=== PATIENT | female | born 1990 | race Caucasian/White ===

== ENCOUNTER → 2021-01-04 07:43 | Outpatient (CLI) | payer OTHER, SELFPAY ==
--- NOTE | ~2021-01-04 | US_ITS ---
EXAMINATION: US OB transvaginal DATE: 01/04/2021 08:16 INDICATION: care for a patient with recurrent loss. TECHNIQUE: Real-time transabdominal and transvaginal pelvic ultrasound was performed. COMPARISON: Ultrasound 02/18/2018 FINDINGS: TRANSABDOMINAL ULTRASOUND: The uterus measures 10.1 x 4.2 x 6.0 cm. TRANSVAGINAL ULTRASOUND: There is an intrauterine gestational sac with mean diameter of 1.2 cm. A yol k sac is identified. The crown rump length measures 3 mm, which correlates with an estimated g estational age of 5 weeks and 6 day(s) (+/-) 4 day(s). heart motion is not identified by M-mode Doppler, which is normal at this size. There is a small subchorionic hematoma. The right ovary measu res 3.3 x 2.2 x 2.3 cm. The left ovary measures 7.2 x 4.4 x 5.5 cm. There is a 5.5 cm cyst in left ov ermelinda. There is no free fluid in the pelvis. IMPRESSION: 1. Single intrauterine with estimated date of delivery of 08/31/2021. 2. Small subchorionic hematoma. 3. 5.5 cm cyst in left ovary, likely benign. Pelvis ultrasound is recommended in one year. Reviewed, dictated and finalized at location A. [facility] IMPRESSION: 1. Single intrauterine with estimated date of delivery of 08/31/2021 . 2. Small subchorionic hematoma. 3. 5.5 cm cyst in left ovary, likely benign. Pelvis ultrasound is recommended i n one year.
== END ==
PROVIDERS: Visit Provider Obstetrics & Gynecology Gynecology
DX: O26.21 Pregnancy care for patient with recurrent pregnancy loss, first trimester (principal); Z3A.00 Weeks of gestation of pregnancy not specified
CPT/HCPCS: 76817

== ENCOUNTER → 2021-01-13 12:48 | Outpatient (CLI) | payer OTHER, SELFPAY ==
--- NOTE | ~2021-01-13 | US_ITS ---
EXAMINATION: US OB transvaginal EXAM DATE: 01/13/2021 13:21 INDICATION: Check viability. Follow-up subchorionic hematoma. 1st trimester. TECHNIQUE: Pelvic obstetrical transvaginal sonogram was performed by a technologist. There are mult iple grayscale and Doppler images available for interpretation. Comparison is made to prior examinati on from 01/04/2021. FINDINGS: Uterus measures 11.0 x 5.7 x 7.5 cm. There is intrauterine gestation sac. pole with heart rate confirmed at 137 beats per minute. The 8 mm crown-rump length corresponds to estimated g estational age by ultrasound of 6 weeks 5 days, estimated date of confinement 09/03. Yolk sac is junito ntified. There is small subchorionic hematoma again noted, measuring 7 mm in thickness by 1.4 cm in diameter, similar in size to previous exam. Simple cystic lesion in the left ovary measuring up to 6 cm with the overall ovary size 6.8 x 4.7 x 6 .9 cm, not appreciably changed compared to prior study. The right ovary is morphologically normal. Co nsider one-year follow-up pelvic sonogram. IMPRESSION: 1. Live intrauterine gestation with small subchorionic hemorrhage. 2. Left ovarian cystic lesion most likely benign. Recommend one-year follow-up pelvic sonogram. Reviewed, dictated and finalized at location A. [facility] [employer]
== END ==
PROVIDERS: Visit Provider Obstetrics & Gynecology Gynecology
DX: O36.8910 Maternal care for other specified fetal problems, first trimester, not applicable or unspecified (principal); O36.80X0 Pregnancy with inconclusive fetal viability, not applicable or unspecified; Z3A.00 Weeks of gestation of pregnancy not specified
CPT/HCPCS: 76817

== ENCOUNTER → 2021-02-10 10:20 | Outpatient (CLI) | payer OTHER, SELFPAY ==
--- NOTE | ~2021-02-10 | US_ITS ---
EXAMINATION: US OB limited DATE: 02/10/2021 10:58 INDICATION: Subchorionic hemorrhage TECHNIQUE: Real-time transabdominal obstetric ultrasound. FINDINGS: Ultrasound dated 01/13/2021 The uterus measures 1.4 x 6.6 x 8.7 cm. heart rate is 162 BPM. Amniotic fluid is subjectively n ormal. Small unchanged subchorionic hemorrhage on the right measuring 1.5 x 1.4 x 0.7 cm. There is a 6.2 cm corpus luteal cyst of the left ovary. Right ovary is unremarkable. IMPRESSION: 1. Single living intrauterine with heart rate of 162 BPM. 2: Small unchanged subchorionic hemorrhage measuring 1.5 x 1.4 x 0.7 cm 3: Left ovarian corpus luteal cyst measuring 6.2 cm. Reviewed, dictated and finalized at location B.
== END ==
PROVIDERS: Visit Provider Obstetrics & Gynecology Gynecology
DX: O36.8910 Maternal care for other specified fetal problems, first trimester, not applicable or unspecified (principal); Z3A.00 Weeks of gestation of pregnancy not specified; N83.11 Corpus luteum cyst of right ovary
CPT/HCPCS: 76815

== ENCOUNTER → 2021-03-03 10:21 | Outpatient (CLI) | payer OTHER, SELFPAY ==
--- NOTE | ~2021-03-03 | US_ITS ---
EXAMINATION: US OB limited DATE: 03/03/2021 10:44 INDICATION: Subchorionic hematoma during early second trimester of . TECHNIQUE: Real-time ultrasound of the pelvis was performed. The interpreting radiologist was not pre sent for the study. COMPARISON: None. FINDINGS: There is a single living fetus in variable presentation. The placenta is anterior and potentially lo w-lying however the internal cervical os is unable to be definitively distinguished from the endometr ial canal at the lower uterine segment which limits assessment. No evident subchorionic hematoma. Fet al heart rate is 154 beats per minute (bpm). The amniotic fluid volume is subjectively normal. IMPRESSION: 1. Single living fetus in variable presentation with heart rate of 154 bpm. 2. Anterior placenta potentially low-lying however evaluation is limited by the early stage of pregna ncy. Recommend attention on follow-up imaging. 3. No evident subchorionic hematoma. Reviewed, dictated and finalized at location A. IMPRESSION: 1. Single living fetus in variable presentation with heart rate of 154 b pm. 2. Anterior placenta potentially low-lying however evaluation is limited by the early stage of . Recommend attention on follow-up imaging. 3. No evident subchorionic hematoma.
== END ==
PROVIDERS: Visit Provider Obstetrics & Gynecology Gynecology
DX: O36.8910 Maternal care for other specified fetal problems, first trimester, not applicable or unspecified (principal); Z3A.00 Weeks of gestation of pregnancy not specified
CPT/HCPCS: 76815

== ENCOUNTER → 2021-03-17 09:11 | Outpatient (CLI) | payer OTHER, SELFPAY ==
--- NOTE | ~2021-03-17 | US_ITS ---
EXAMINATION: US OB limited EXAM DATE: 03/17/2021 09:36 INDICATION: Low lung placenta. 2nd trimester. TECHNIQUE: Pelvic obstetrical transabdominal sonogram was performed by a technologist. There are mu ltiple grayscale and Doppler images available for interpretation. Comparison is made to prior examina tion from 03/03/2021. FINDINGS: There is a single fetus identified in transverse presentation with a heart rate of 164 beat s per minute. The placenta is located in the low anterior position. Placental margin to internal cerv ical os distance is 6 mm . There is no sonographic evidence of retroplacental hemorrhage identified. There is subjectively expected amount of amniotic fluid. Incidental note made of left adnexal simple cystic region measuring 5.7 x 3.9 x 5.4 cm, stable lary red to study from 02/10/2021. IMPRESSION: 1. Single fetus in transverse presentation with heart rate 164 beats per minute. 2. Low anterior placenta, marginal 6 mm from internal cervical os. 3. Persistent nonspecific left adnexal simple cystic lesion. Reviewed, dictated and finalized at location B. IMPRESSION: 1. Single fetus in transverse presentation with heart rate 164 beats per minut e. 2. Low anterior placenta, marginal 6 mm from internal cervical os. 3. Persistent nonspecific left adnexal simple cystic lesion.
== END ==
PROVIDERS: Visit Provider Obstetrics & Gynecology Gynecology
DX: O44.10 Complete placenta previa with hemorrhage, unspecified trimester (principal); Z3A.00 Weeks of gestation of pregnancy not specified
CPT/HCPCS: 76815

== ENCOUNTER → 2021-04-14 09:59 | Outpatient (CLI) | payer OTHER, SELFPAY ==
--- NOTE | ~2021-04-14 | US_ITS ---
EXAMINATION: US OB >= 14 weeks Fetus EXAM DATE: 04/14/2021 11:11 INDICATION: Encounter for supervision of normal , 2nd trimester.. TECHNIQUE: Pelvic obstetrical transabdominal sonogram was performed by a technologist. There are mu ltiple grayscale and Doppler images available for interpretation. Comparison is made to prior examina tion from 03/17/2021. FINDINGS: There is a single fetus identified in transverse vertex presentation with a heart rate of 1 54 beats per minute. The placenta is located in the anterior position. There is no sonographic evide nce of retroplacental hemorrhage identified. There is subjectively expected amount of amniotic fluid. Placental margin to internal cervical os distance is 3.3 cm. BIOMETRIC DATA: Biparietal diameter (BPD): 4.8 cm ----------------> 20 weeks 3 days. Head circumference (HC): 17.5 cm ----------------> 20 weeks 0 days. Abdominal circumference (AC): 14.8 cm ----------> 20 weeks 0 days. Femur length (FL): 3.1 cm --------------------------> 19 weeks 4 days. These measurements are concordant. HC/AC ratio is 1.19 (The 5th -- 95th percentile range is 1.08-1.25. Estimated weight is 317 g +/- 48 g. This is the 54th percentile when the currently reported cl inical gestation age 19 weeks 5 days, clinical estimated date of delivery (EBONIE-OPE) 09/03/2021 is use d. estimated gestational age based on measurements from this exam is 20 weeks 0 days, with an e stimated date of delivery (EBONIE-AUA) 09/01. ANATOMIC SURVEY: The following anatomy is identified and is sonographically normal in appearance: Cerebral ventricles Cerebellum Cisterna magna Nuchal fold CTL-spine Four-chamber heart Diaphragm Stomach Kidneys Bladder Three-vessel cord Cord insertion IMPRESSION: 1. Single fetus in transverse vertex presentation with heart rate 154 beats per minute. 2. Estimated weight of 317 grams, 54th percentile using the currently reported clinical gestat ion age of 19 weeks 5 days, EBONIE(OPE) 09/03. 3. Normal anatomic survey. Reviewed, dictated and finalized at location B. IMPRESSION: 1. Single fetus in transverse vertex presentation with heart rate 154 beats pe r minute. 2. Estimated weight of 317 grams, 54th percentile using the currently re ported clinical gestation age of 19 weeks 5 days, EBONIE(OPE) 09/03. 3. Normal anatomic survey.
== END ==
PROVIDERS: Visit Provider Nurse Practitioner
DX: Z34.92 Encounter for supervision of normal pregnancy, unspecified, second trimester (principal); Z3A.20 20 weeks gestation of pregnancy
CPT/HCPCS: 76805

== ENCOUNTER → 2021-06-23 08:25 | Outpatient (CLI) | payer OTHER, SELFPAY ==
--- NOTE | ~2021-06-23 | US_ITS ---
EXAMINATION: US OB follow up DATE: 06/23/2021 08:58 INDICATION: Size greater than dates during third trimester TECHNIQUE: Real-time ultrasound of the pelvis was performed. The interpreting radiologist was not pre sent for the study. COMPARISON: None. FINDINGS: There is a single living fetus in breech presentation. The placenta is anterior and 8.7 cm from the internal cervical os. cardiac activity and movement are noted. heart rate is 128 beats per minute (bpm). The amniotic fluid index is 24.9 cm which is high (normal range: 9.2 c m to 23.1 cm). The following biometric data were obtained: Biparietal diameter (BPD): 8.0 cm; head circumference (HC): 28.8 cm; abdominal circumference (AC): 27 .8 cm; femur length (FL): 5.7 cm. These measurements are concordant. Estimated weight is 1761 g +/- 264 g, which correlates with the 91st percentile when 09/03/2021 is used as estimated date of delivery. As single measurements, these parameters are each equal to the following estimated gestational ages w ith ranges of +/- 2 standard deviations: BPD: 32 weeks 1 days ( 29 weeks 1 days - 35 weeks 2 days). HC: 31 weeks 5 days ( 28 weeks 6 days - 34 weeks 5 days). AC: 31 weeks 6 days ( 29 weeks 0 days - 34 weeks 6 days). FL: 30 weeks 2 days ( 28 weeks 1 days - 32 weeks 2 days). estimated gestational age based solely on measurements from this exam is 31 weeks 4 days +/- 2 weeks 1 days. IMPRESSION: 1. Single living fetus in breech presentation. 2. Estimated weight is 1761 g +/- 264 g, which correlates with the 91st percentile when 021 is used as estimated date of delivery. 3. Polyhydramnios. Reviewed, dictated and finalized at location B. IMPRESSION: 1. Single living fetus in breech presentation. 2. Estimated weight is 1761 g +/- 264 g, which correlates with the 91st p ercentile when 09/03/2021 is used as estimated date of delivery. 3. Polyhydramnios.
== END ==
PROVIDERS: Visit Provider Nurse Practitioner
DX: O36.63X0 Maternal care for excessive fetal growth, third trimester, not applicable or unspecified (principal); Z3A.31 31 weeks gestation of pregnancy
CPT/HCPCS: 76816

== ENCOUNTER 2021-08-11 09:51 | Outpatient (RCR) | payer OTHER, SELFPAY ==
[2021-07-14 10:12] VITALS: BP 119/64; PULSE 102
--- NOTE | ~2021-08-11 | US_ITS ---
EXAMINATION: US OB limited w BPP DATE: 08/01/2021 16:55 CDT INDICATION: decelerations. TECHNIQUE: Real-time transabdominal obstetric ultrasound. FINDINGS: Comparison to 06/23/2021 There is a single living fetus in vertex presentation. The placenta is anterior without placenta pre via. cardiac activity and movement is noted with a heart rate of 145 beats per minute. A mniotic fluid index is above normal limits measuring 28.8 cm (normal range for gestational age is 7.9 -24.9 cm). Biophysical profile: breathin of 2 movement: 2 of 2 tone: 2 of 2 Amniotic flud pocket: 2 of 2 Total score: 8 of 8 IMPRESSION: 1. Single living intrauterine in vertex presentation. 2: Total biophysical profile score of 8/8. 3: Oligohydramnios. Reviewed, dictated and finalized at location A.
[2021-08-11 10:33] VITALS: BP 114/73; PULSE 84
== END 2021-09-26 10:32 | disposition home or self-care (01) ==
LOC: ANHOBOP 09:51
PROVIDERS: Visit Provider Obstetrics & Gynecology Gynecology
DX: O36.63X0 Maternal care for excessive fetal growth, third trimester, not applicable or unspecified (principal); Z3A.32 32 weeks gestation of pregnancy; O41.03X0 Oligohydramnios, third trimester, not applicable or unspecified; Z3A.36 36 weeks gestation of pregnancy
CPT/HCPCS: 59025; 76815; 76819

== ENCOUNTER 2021-08-11 17:01 | Outpatient (CLI) | payer OTHER, SELFPAY ==
[2021-08-11 18:30] VITALS: BP 125/85; PULSE 88
== END 2021-08-11 18:05 | disposition home or self-care (01) ==
PROVIDERS: Visit Provider Obstetrics & Gynecology Gynecology
DX: O42.92 Full-term premature rupture of membranes, unspecified as to length of time between rupture and onset of labor (principal); O41.03X0 Oligohydramnios, third trimester, not applicable or unspecified; Z3A.39 39 weeks gestation of pregnancy
CPT/HCPCS: 59025; 84112

== ENCOUNTER 2021-08-27 08:44 | Outpatient (CLI) | payer OTHER, SELFPAY ==
[2021-08-27 09:42] LABS: Hematocrit 33.7 % (37.0-47.0); Hemoglobin 11.2 g/dL (12.0-15.0); Mean Corpuscular HGB Conc 33.2 g/dl (32-36); Mean Corpuscular Hemoglobin 31.1 pg (26-34); Mean Corpuscular Volume 93.6 fl (80-100); Mean Platelet Volume 11.5 fl (7.4-10.4); Platelet Count Result 187 k/mm3 (150-375); Red Cell Distribution Width 14.4 % (11.5-14.5); White Blood Count 9.8 K/mm3 (4.5-10.0)
[2021-08-27 10:57] LABS: Rapid Plasma Reagin Non-Reactive (NonReactive)
== END 2021-08-27 08:45 | disposition home or self-care (01) ==
LOC: ANHLAB 08:47
PROVIDERS: Visit Provider Obstetrics & Gynecology Gynecology
DX: Z34.93 Encounter for supervision of normal pregnancy, unspecified, third trimester (principal); Z3A.00 Weeks of gestation of pregnancy not specified
CPT/HCPCS: 36415; 85027; 86592; 86850; 86900; 86901

== ENCOUNTER 2021-08-29 08:13 | Inpatient (IN) | payer OTHER, SELFPAY ==
[2021-08-29] VITALS (64 sets, daily range): BP systolic 93–140; BP diastolic 47–94; PULSE 52–104; RESP 15–18; TEMP 36.4–37.2; O2SAT 97–100; BMI 34.0
--- NOTE | 2021-08-29 07:32 | WPDHPUPDATE1 ---
History and Physical Update Update Date/Time: 08/29/21 07:32 History and Physical has been reviewed, including an updated exam of the patient. There are NO changes in the patient's condition. Risks, benefits, and alternatives have been discussed and questions answered. Patient agrees to proceed with procedure.
--- NOTE | 2021-08-29 07:32 | PM.IMHP ---
H&P: HPI History of Present Illness Date/Time: 08/29/21 07:32 The patient is a 30-year-old 3 para 1 aborta 1 admitted at 39 weeks for repeat section and bilateral tubal ligation. The has been complicated by a low-lying placenta and polyhydramnios which did resolve. labs A positive, rubella immune, RPR negative, HIV negative, and group B strep negative. The patient has a previous delivery for a cord prolapse and has chosen to proceed with a repeat . In addition the patient has completed her childbearing and has requested a bilateral tubal ligation. It was discussed with the patient that typically during a delivery we would remove the majority of the tube. Patient voices understanding and agrees to proceed. Risks of infection, bleeding, injury to internal organs, and tubal failure were reviewed. Chief Complaint: Repeat section Review of Systems Review of Systems: Patient with occasional contractions. 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 Spontaneous Surgical History Surgical History (Updated 08/29/21 @ 07:40 by Peace Hough MD) History of Cord prolapse Family History Family History (Updated 08/04/21 @ 14:30 by Cindy Galeano RN) Father Colon cancer Social History Social History Substance use: never Spiritual care concerns: No Meds Home Medications and Allergies Home Medications Medication Instructions Recorded Confirmed Type PNV cmb#95-ferrous fumarate-FA 1 tablet PO DAILY 08/04/21 08/11/21 History [] aspirin 81 mg PO DAILY 08/04/21 08/11/21 History cholecalciferol (vitamin D3) 50 mcg PO DAILY 08/04/21 08/11/21 History [Vitamin D3] docusate sodium [Colace] 100 mg PO DAILY 08/11/21 08/11/21 History Allergies Allergy/AdvReac Type Severity Reaction Status Date / Time sulfamethoxazole Allergy Mild Hives Verified 08/11/21 10:01 clindamycin Allergy Unknown HIVES Verified 08/11/21 10:01 Exam Narrative: Pre weight 130 current weight 181 Const: General: comfortable and no acute distress Resp: Effort & Inspection: normal respiratory effort GI: GI Palp: Yes Other GI palpation findings present (Fundal height 40cm) Extrem: Right lower extremity: edema (Trace) Left lower extremity: edema (Trace) Assessment and Plan Assessment and plan (1) 39 weeks gestation of : Code(s): Z3A.39 - 39 weeks gestation of Status: Acute (2) History of : Code(s): Z98.891 - History of uterine scar from previous surgery Status: Acute Assessment and Plan: Plan is to proceed with repeat delivery (3) Encounter for sterilization: Code(s): Z30.2 - Encounter for sterilization Status: Acute Assessment and Plan: Plan is to proceed with bilateral tubal ligation
[2021-08-29] MEDS: LACTATED RINGERS 250 ML 999 ML IVPB (09:20)
--- NOTE | 2021-08-29 09:47 | LDADM ---
This patient, Karlee Torres, was admitted to Labor/Delivery/Recovery 118 on 08/29/21 at 08:13. Plans for scheduled section, pain management and were discussed with patient. Patient/family oriented to hospital policies and general routines including ID bracelet, bed and alarms, visiting hours, pain management, procedures, bathroom and other care routines, personal items, smoking policy, room service/diet and guest tray routines, infant security routines, and visiting hours. Patient/Family are encouraged to report perceived risks to care and to ask questions if they do not understand what they are told or what they should do. See OBIX for further documentation.
--- NOTE | 2021-08-29 09:59 | P.PNAN_ITS ---
Anes - Initial Pre Proc Eval Procedure: Operation Date: 08/29/21 10:30 Proposed Procedures p Repeat Section with Tubal Ligation - Peace Hough MD Date/Time: 08/29/21 09:59 Surgeon: Peace Hough MD Pre Op Diagnosis: Repeat Patient Data Age: 30 Gender: F Height: 1.55 m Weight: 81.81 kg Last Vital Signs Temp 37.2 C 08/29/21 09:13 Pulse 104 H 08/29/21 08:43 BP 112/72 08/29/21 08:43 Allergies Allergy/AdvReac Type Severity Reaction Status Date / Time sulfamethoxazole Allergy Mild Hives Verified 08/11/21 10:01 clindamycin Allergy Unknown HIVES Verified 08/11/21 10:01 Home Medications Medication Instructions Recorded Confirmed Type PNV cmb#95-ferrous fumarate-FA 1 tablet PO DAILY 08/04/21 08/11/21 History [] aspirin 81 mg PO DAILY 08/04/21 08/11/21 History cholecalciferol (vitamin D3) 50 mcg PO DAILY 08/04/21 08/11/21 History [Vitamin D3] docusate sodium [Colace] 100 mg PO DAILY 08/11/21 08/11/21 History Patient hx anesthesia problems: none Family hx anesthesia problems: none Results Review: All pre-operative results and documents have been reviewed as p art of the pre-operative evaluation. 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 Spontaneous Surgical History Surgical History (Updated 08/29/21 @ 07:40 by Peace Hough MD) History of Cord prolapse Family History Family History (Updated 08/04/21 @ 14:30 by Cindy Galeano RN) Father Colon cancer Social History Social History Smoking status: Former smoker Substance use: never Spiritual care concerns: No Anes - Eval Final PreProcedure Day of Procedure 08/29/21 09:59 Patient weight: obese Heart: regular rate and rhythm Lungs: clear to auscultation and normal air movement Airway: Mallampati scale class II Neurological: alert and oriented Last oral intake: >/= 8 hours ASA classification: II Emergent: no Anesthetic plan: proceed Anesthesia type and monitoring: regional spinal and standard monitoring Results Review: All pre-operative results and documents have been reviewed as part of the pre-operative evaluation. Informed Consent: The patient's anesthetic plan and its attendant risks and benefits were discussed with the patient/family/POA. Questions were solicited and answers provided to the satisfaction of the patient/family/POA.
[2021-08-29] MEDS: KETOROLAC 30 MG/ML VIAL (*BKC) IV PUSH (10:44)
[2021-08-29] MEDS: LACTATED RINGERS 1,000 ML 125 ML IV CONT (11:00)
--- NOTE | 2021-08-29 11:03 | P.OP_ITS ---
Procedure Note - Detailed Date of Procedure 08/29/21 Pre-op Diagnosis Repeat and bilateral tubal ligation Post-op Diagnosis same Procedure Performed repeat low-transverse section and bilateral tubal ligation Surgeon Peace Hough MD Anesthesia spinal Findings male weighing 7 lb 3 oz with Apgars of 9 and 9; normal appearing tubes ovaries and uterus; dense peritoneal adhesions from the uterus to the anterior abdominal wall ;dense bladder flap adhesions Description of Procedure The patient was taken to the operating room and placed under anesthesia in the dorsal supine position with a leftward tilt. Once anesthesia was deemed adequate a Pfannenstiel skin incision was made through her prior incision. The incision was carried to the fascia which was nicked in the midline. The fascial incision extended laterally using Barrientos scissors. [facility] was used to tent the fascia which was then dissected off using sharp dissection due to dense adhesions. The peritoneum was noted to be adherent to the fascia and the uterus. This is dissected off in the midline and extended laterally to allow visualization of the lower uterine segment. The lower uterine segment is inspected and the bladder flap was noted to be very adherent but below the lower uterine segment. Decision was made to incise the lower uterine segment and leave the bladder and placed. The lower uterine segment was incised in a transverse fashion with the scalpel and extended laterally using blunt traction. Clear fluid is noted upon rupture of membranes. The infant's head is delivered through the incision while the regional administrative assistant applied fundal pressure. The remainder of the was fully delivered and the cord was clamped and cut. The placenta is removed using manual traction. The uterus is left in situ due to adhesions. The uterine incision is closed using 0 Monocryl in a running locked fashion with the same suture used imbricate. Good hemostasis is noted. The left tube is identified grasped with a Kay and the distal 2/3 crossclamped with a Z clamp. The tube was excised.The pedicle was tied using 0 Vicryl. Good hemostasis is noted. The right tube was identified grasped with a Kay and the distal 2/3 crossclamped with a Z clamp. The tube is excised and the pedicle tied off using 0 Vicryl. Good hemostasis is noted. The incision was again inspected and noted to be hemostatic. The surgical field was irrigated. Surgical sites were again inspected noted to be hemostatic. The fascia was closed using 0 Vicryl in a running fashion subcutaneous tissues are irrigated and made hemostatic using Bovie cautery. Skin incision was closed using 4 0 Vicryl in a subcuticular fashion Dermaflex was placed over the incision. Sponge, needle, and instrument counts are correct per the OR staff. Patient received Ancef prior to skin incision. Estimated Blood Loss 235 Drains Yes ( Wilkinson) Packing No Pathology yes ( bilateral partial tubal C) Complications No immediate complications Condition stable Disposition PACU
--- NOTE | 2021-08-29 11:11 | PM.OBDSVD ---
DS: Admitting Diagnosis Discharge Date 08/31/21 Admitting Diagnosis repeat section and tubal ligation DS: Discharge Diagnosis Discharge Diagnosis (1) Encounter for sterilization: Code(s): Z30.2 - Encounter for sterilization Status: Acute (2) delivery delivered: Code(s): O82 - Encounter for delivery without indication Status: Acute OB - DS: Summary OB Procedures : NST and Ultrasound OB Procedures Intrapartum: low cervical, transverse and Tubal ligation OB Procedures: : None Peripartum Data Infant Delivery Method: Section Procedures: Procedures Operation Date: 08/29/21 10:30 <No data on this case meets the specified criteria> complications: none Status at Discharge Functional status at discharge: independent ambulation Overall status at discharge: patient is progressing back to baseline Time Spent with Patient Time attestation: Total time spent providing and/or coordinating discharge services: DS: Data Data Completed and Pending Pending studies at discharge: Pending at discharge 08/29/21 10:51 Surgical [PTH] Routine Discharge Plan Discharge Attending physician on discharge: Peace Hough Consulting providers: Austin Byrnes Discharging Clinician: Bob Oropeza Anticipated Discharge Date/Time: 08/31/21 11:13 Patient Disposition: Home, Self-Care Activity: may shower, may drive after 2 weeks and pelvic rest Diet: regular Wound Care Instructions: incision open to air Discharge Instructions: Education: Mom and Baby Guide Given to: Mother Follow-Up: Call your delivering provider's office for an appointment to be seen in: 1 Weeks Mom and baby should come to the [facility] for the follow-up appointment. Appointment Date/Time: August at 9:00 am What to expect at your follow-up visit: Blood Pressure Check Physical Assessment Call [phone] if you are unable to keep your appointment time. BREAST CARE: * Wear a snug supportive bra. * For engorgement discomfort: Breast Feeding: * Apply warm moist washcloths * Express milk as needed to relieve engorgement * Wear loose clothing * For sore nipples: * Identify correct latch-on * Apply warm moist washcloths before and after nursing * Air dry nipples after nursing * May apply Lansinoh cream to nipples ABDOMINAL INCISION: (if applicable) * Allow incision to air dry * Do NOT use lotions for powders on your incision * When showering, allow soap and water to run over the incision, but do not wash incision EPISIOTOMY/PERINEAL CARE: * Until bleeding stops, use your peng bottle after urinating * Change your pad frequently throughout the day * You may take sitz baths several times a day (fill your bathtub with warm water and soak for 20 minutes.) Do NOT bathe in the water * No tub baths until seen by your physician - You may shower ACTIVITY: * Rest as much as possible. * Do not exercise or lift anything heavier than your baby (such as laundry or other children.) * Avoid stairs or driving as much as possible. * Do not put anything into the vagina. No douching, tampons, or sexual activity until seen by physician. NOTIFY PHYSICIAN IF YOU HAVE ANY QUESTIONS OR IF ANY OF THE FOLLOWING SYMPTOMS OCCUR: * If your incision becomes red, swollen, or more painful than what you have experienced in the hospital. * If your vaginal bleeding becomes foul smelling. * If your vaginal bleeding becomes more heavy than a period or if your bleeding changes from pink to bright red. However, you may pass an occasional walnut-sized clot once or twice for the first week . * If you experience a sharp, shooting pain in you calves. * If you discover a hard, reddened area on your breast or if you experience fl
[2021-08-29] MEDS: OXYTOCIN 30 UNITS/NS 500 ML 30 UNITS/500 ML BAG 125 UNITS IV CONT (11:38)
--- NOTE | 2021-08-29 13:37 | PC.NURSE ---
Patient transferred to post room #292 per stretcher from labor and delivery. Support person present. Oriented to unit, room, information board, rooming in, admission packet and security measures. Patient verbalizes understanding.
[2021-08-29] MEDS: DEXTROSE 5%/0.45% SOD CHL 1,000 ML 125 ML IV CONT (16:14)
[2021-08-30] MEDS: KCL 20 MEQ/D5/0.45% SOD CHL 1,000 ML 125 ML IV CONT (00:12)
[2021-08-30 04:00] VITALS: BP 106/55; PULSE 88; RESP 16; TEMP 36.9; O2SAT 99
[2021-08-30] MEDS: KETOROLAC 30 MG/ML VIAL (*BKC) IV PUSH (04:16)
[2021-08-30 05:37] LABS: Basophils Percent Auto 0.2 % (0.2-1.2); Eosinophils Absolute Auto 0.1 K/mm3 (0-0.3); Eosinophils Percent Auto 0.9 % (0-4.4); Hematocrit 28.2 % (37.0-47.0); Hemoglobin 9.2 g/dL (12.0-15.0); Immature Granulocyte Absolute 0.04 K/mm3 (0.00-0.031); Immature Granulocyte Percent A 0.4 % (0-0.5); Lymphocytes Absolute Auto 1.36 K/mm3 (0.9-3.2); Lymphocytes Percent Auto 14.5 % (18.3-44.2); Mean Corpuscular HGB Conc 32.6 g/dl (32-36); Mean Corpuscular Hemoglobin 30.5 pg (26-34); Mean Corpuscular Volume 93.4 fl (80-100); Mean Platelet Volume 11.9 fl (7.4-10.4); Monocytes Absolute Auto 0.4 K/mm3 (0.1-0.6); Neutrophils Absolute Auto 7.5 K/mm3 (1.3-6.7); Platelet Count Result 138 k/mm3 (150-375); Red Blood Count 3.02 M/mm3 (4.2-5.4); Red Cell Distribution Width 14.6 % (11.5-14.5); White Blood Count 9.4 K/mm3 (4.5-10.0)
--- NOTE | 2021-08-30 07:49 | P.PNOB_ITS ---
OB - PN: Subj Subjective Date/time seen: 08/30/21 07:49 Patient comments: no complaints and pain well controlled baby status: doing well and nursing well OB - PN: Obj Data Labs CBC & Chem 7: 08/30/21 03:59 Labs: Laboratory Results - last 24 hr 08/30/21 03:59 WBC 9.4 RBC 3.02 L Hgb 9.2 L Hct 28.2 L MCV 93.4 MCH 30.5 MCHC 32.6 RDW 14.6 H Plt Count 138 L MPV 11.9 H Immature Gran % (Auto) 0.4 Neut % (Auto) 80.0 H Lymph % (Auto) 14.5 L [place] % (Auto) 4.0 Eos % (Auto) 0.9 Baso % (Auto) 0.2 Lymph # (Auto) 1.36 [place] # (Auto) 0.4 Eos # (Auto) 0.1 Baso # (Auto) 0.0 Abs Immat Gran (auto) 0.04 H Absolute Neuts (auto) 7.5 H Absolute Nucleated RBC 0.0 Nucleated RBC % 0.0 OB - PN A/P Plan day: 1 Plan: routine care Time Spent With Patient Time: Total time spent is greater than 50% in coordination of care (as doc umented) at patient's floor/unit and/or counseling patient: Exam Narrative: inc c/d/i : Bimanual exam- vagina & uterus: other (Uterus firm, nt @U)
[2021-08-30 08:20] VITALS: BP 115/63; PULSE 88; RESP 18; TEMP 37.7; O2SAT 99
[2021-08-30] MEDS: POLYSACCHARIDE IRON COMPLEX 150 MG CAPSULE PO ×2 (09:29→15:44)
[2021-08-30] MEDS: MULTIVIT/MIN/PREN/FOL AC/IRON TABLET 1 TAB PO (09:29)
[2021-08-30] MEDS: DOCUSATE SODIUM 100 MG CAPSULE PO ×2 (09:29→15:44)
[2021-08-30] MEDS: HYDROcodone/acetaminophen (*CRX) 5-325 MG TABLET 1 TAB PO ×3 (09:30→17:08)
--- NOTE | 2021-08-30 09:44 | WPDANLDPN2 ---
Anes-Prog Note L&D Date/Time: 08/30/21 09:44 Comfortable throughout: section Neuraxial method: spinal Epidural/Spinal procedure site: clean & non-tender Neuro status: Neuro function grossly intact. Cardiovascular status: normal Respiratory status: normal Airway patency: baseline Mental status: baseline Post-Op hydration status: normal Vital Signs: Last Vital Signs Temp 37.7 C H 08/30/21 08:20 Pulse 88 08/30/21 08:20 Resp 18 08/30/21 08:20 BP 115/63 08/30/21 08:20 Pulse Ox 99 08/30/21 08:20 Pain score (VAS): 11/21 I/O: Intake & Output 08/29/21 08/30/21 08/30/21 23:59 07:59 15:59 Intake Total 1130 455 800 Output Total 1425 1400 425 Balance -295 -945 375 Post-procedural complaints: none Patient feedback: Patient satisfied with anesthetic care.
--- NOTE | 2021-08-30 09:45 | WPDANLDNPN2 ---
Anes-Prog Note L&D-Neuraxial Date/Time: 08/30/21 09:45 Neuraxial medications: intrathecal PF morphine Opiod-related complaints: none Patient feedback: Patient satisfied with post-operative pain management.
--- NOTE | 2021-08-30 11:15 | PC.NURSE ---
Mother called out for assist with feeding. Infant is able to freely thrust tongue past gum ridge and flange both lips. Skin is intact on both nipples, no redness and bruising noted. Reviewed feeding cues, frequencies, duration of feedings, feeding elimination flow sheet, and signs of adequate intake. Demonstrated stimulation techniques to wake infant for feeding. Assisted with infant to breast. Reviewed positioning/alignment in cross cradle, holding breast in ?U? hold and guided asymmetrical latch on. Reviewed rational for each. able to latch correctly within a few attempts. Infant nursed eagerly with steady draws and frequent swallowing noted, some pausing noted. Reviewed signs of a correct latch, effective nursing and suck swallow ratio. Suggested mother stimulate while feeding to increase stimulate, increase intake and to assist with maintaining deep latch. Infant would slip to shallow latch causing tenderness. Demonstrated how to adjust latch more deeply while feeding if needed. Mother reports she can feel the difference in latch with less tenderness. Nipple care reviewed of lanolin after feedings, warm compresses as needed. Instructed mother to call out for RN assistance if she is unable to latch infant for feeding or she has discomfort with nursing. Instructed feeding should be initiated three hours from start of last feeding or if feeding cues are noted before. Mother voiced understanding of information shared.
[2021-08-30] MEDS: IBUPROFEN 600 MG TABLET PO ×2 (15:44→21:23)
--- NOTE | 2021-08-30 17:00 | PC.NURSE ---
Patient viewed the discharge video Mother & Baby Care, The First Two Weeks . Patient was given the opportunity and encouraged to ask questions. Patient verbalized understanding of information shared and has been given the mother/baby guide for home reference.
[2021-08-30 21:09] VITALS: BP 107/62; PULSE 82; RESP 16; TEMP 36.4
[2021-08-30] MEDS: HYDROcodone/acetaminophen (*CRX) 10-325 MG TABLET 1 TAB PO (21:22)
[2021-08-31] MEDS: IBUPROFEN 600 MG TABLET PO (04:28)
[2021-08-31] MEDS: HYDROcodone/acetaminophen (*CRX) 10-325 MG TABLET 1 TAB PO (04:28)
--- NOTE | 2021-08-31 07:44 | P.PNOB_ITS ---
OB - PN: Subj Subjective Date/time seen: 08/31/21 07:44 no complaints desires home OB - PN: Obj Data Labs CBC & Chem 7: 08/30/21 03:59 OB - PN A/P Assessment and Plan (1) delivery delivered: Code(s): O82 - Encounter for delivery without indication Status: Acute Assessment and Plan: continue with care. d/c home Time Spent With Patient Time: Total time spent is greater than 50% in coordination of care (as d ocumented) at patient's floor/unit and/or counseling patient: Exam Narrative: ff below umbilicus
[2021-08-31 08:00] VITALS: BP 121/78; PULSE 89; RESP 16; RESP 18; TEMP 36.8; O2SAT 100
[2021-08-31] MEDS: SIMETHICONE 80 MG TAB.CHEW PO (08:48)
[2021-08-31] MEDS: DOCUSATE SODIUM 100 MG CAPSULE PO (08:48)
[2021-08-31] MEDS: POLYSACCHARIDE IRON COMPLEX 150 MG CAPSULE PO (08:48)
[2021-08-31] MEDS: HYDROcodone/acetaminophen (*CRX) 5-325 MG TABLET 1 TAB PO (08:48)
[2021-08-31] MEDS: MULTIVIT/MIN/PREN/FOL AC/IRON TABLET 1 TAB PO (08:49)
[2021-09-01 09:34] VITALS: BP 122/78; PULSE 79; RESP 20; TEMP 36.7; O2SAT 100
== END 2021-08-31 11:15 | disposition home or self-care (01) | DRG 785 ==
LOC: ANHLDR 11:13 → ANHOB2 08-30 11:32 → ANHLDR 09-01 13:43
PROVIDERS: Admitting Provider Obstetrics & Gynecology Gynecology; Visit Provider Obstetrics & Gynecology
PROC: 10D00Z1 Extraction of Products of Conception, Low, Open Approach (ICD-10-PCS; CPT 59514; principal; 2021-08-29 10:30)
DX: O34.211 Maternal care for low transverse scar from previous cesarean delivery (principal); Z37.0 Single live birth; Z3A.39 39 weeks gestation of pregnancy; Z30.2 Encounter for sterilization
CPT/HCPCS: 36415; 85025; 85027; 86592; 86850; 86900; 86901; 88302; A9270; J0131; J1885; J2274; J2405; J2590; J3480; J7120

== ENCOUNTER 2023-12-06 19:41 | Emergency (ER) | payer OTHER, SELFPAY ==
--- NOTE | ~2023-12-06 | CT_ITS ---
EXAMINATION: CT abdomen pelvis w con DATE: 12/06/2023 20:58 INDICATION: Low abdominal pain. Nausea. TECHNIQUE: Computed tomography (CT) of the abdomen and pelvis was performed with 100 mL Omnipaque 350 intravenous contrast. Automated exposure control and iterative reconstruction technique were employe d. The dose-length product was 273.58 mGy-cm. COMPARISON: None. FINDINGS: The visualized portions of the lung bases demonstrate mild atelectasis. No pleural effusion . The heart size is normal. No pericardial effusion. The liver, gallbladder, spleen, pancreas, adrena l glands, and kidneys are normal. There are no dilated loops of bowel. The appendix is normal. The ut erus demonstrates changes of section. There are no pathologically enlarged lymph nodes. Ther e is no free intraperitoneal fluid. There is mild thoracic spondylosis. IMPRESSION: 1. No etiology for the patient's symptoms. Reviewed, dictated and finalized at location E. BODY DESIGNER
--- NOTE | ~2023-12-06 | US_ITS ---
EXAMINATION: US pelvic complete DATE: 12/06/2023 20:50 INDICATION: Pelvic pain. TECHNIQUE: Multiple transabdominal and transvaginal sonographic images of the pelvis were obtained. COMPARISON: None. FINDINGS: TRANSABDOMINAL ULTRASOUND: The uterus measures 10.3 x 4.1 x 5.3 cm. There is no free fluid in the pelvis. TRANSVAGINAL ULTRASOUND: The endometrial complex measures 7 mm in thickness. The right ovary measures 2.6 x 2.4 x 2.1 m. The l eft ovary measures 3.5 x 3.0 x 3.3 cm. There is normal vascular flow in the ovaries. IMPRESSION: 1. Normal pelvis. Reviewed, dictated and finalized at location E. HANDLERS SUPERVISOR IMPRESSION: 1. Normal pelvis.
[2023-12-06 19:43] VITALS: BP 123/80; PULSE 115; RESP 20; TEMP 36.3; O2SAT 100
[2023-12-06 20:24] LABS: Basophils Absolute Auto 0.1 K/mm3 (0.0-0.1); Basophils Percent Auto 0.4 % (0.2-1.2); Eosinophils Absolute Auto 0.1 K/mm3 (0-0.3); Eosinophils Percent Auto 0.6 % (0-4.4); Hematocrit 42.2 % (37.0-47.0); Hemoglobin 13.9 g/dL (12.0-15.0); Immature Granulocyte Absolute 0.06 K/mm3 (0.00-0.031); Immature Granulocyte Percent A 0.4 % (0-0.5); Lymphocytes Absolute Auto 1.69 K/mm3 (0.9-3.2); Lymphocytes Percent Auto 12.1 % (18.3-44.2); Mean Corpuscular HGB Conc 32.9 g/dl (32-36); Mean Corpuscular Hemoglobin 29.6 pg (26-34); Mean Corpuscular Volume 89.8 fl (80-100); Monocytes Absolute Auto 0.7 K/mm3 (0.1-0.6); Monocytes Percent Auto 5.2 % (2.6-8.5); Neutrophils Absolute Auto 11.4 K/mm3 (1.3-6.7); Neutrophils Percent Auto 81.3 % (45.5-73.1); Platelet Count Result 251 k/mm3 (150-375); Red Cell Distribution Width 12.4 % (11.5-14.5)
--- NOTE | 2023-12-06 20:25 | ED.ABDPAIN ---
HPI - Abdominal Pain General Chief Complaint: Abdominal Pain Stated Complaint: abd pain, nausea Time Seen by Provider: 12/06/23 19:53 Source: patient Mode of arrival: ambulatory Limitations: no limitations History of Present Illness HPI narrative: Patient is a 33 y/o female who presents to the ED with c/o lower abdominal pain. Patient reports she developed pain around 230pm today. Pain was mild at first, present in her R lower abdomen and radiating across her lower abd. States pain became more severe around 330pm and patient began feeling nauseous. Pain has since persisted, which prompted her presentation. She did take meclizine at home which has improved her nausea. Denies any vomiting. Patient reports having similar pain in the past when diagnosed with colitis. She denies any recent changes in her bowel patterns. Denies diarrhea, constipation, rectal bleeding, melena. Denies fevers. Denies urinary complaints. She does note that she was diagnosed with the UTI last week and finished a course of Macrobid. Related Data Allergies Allergy/AdvReac Type Severity Reaction Status Date / Time sulfamethoxazole Allergy Mild Hives Verified 12/06/23 20:17 clindamycin Allergy Unknown HIVES Verified 12/06/23 20:17 levofloxacin AdvReac Intermediate Swelling Verified 12/06/23 20:17 metronidazole AdvReac Intermediate Swelling Verified 12/06/23 20:17 Review of Systems Review of Systems: CONSTITUTIONAL: Denies fever, chills, or sweats. GASTROINTESTINAL: See HPI. GENITOURINARY: Denies dysuria or hematuria. MUSCULOSKELETAL: Denies back pain, extremity pain, myalgia. 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 Sibling No problems noted. Social History Social History Smoking status: Former smoker Second hand tobacco smoke exposure: No Alcohol intake: current Drinks per week: 3 Substance use: never Substance use type: does not use Lack of Transportation: No Lack of Food: Never True Current Housing: I Have Housing Concerned About Future Housing: No Difficulty Paying Gas/Electric Bills: No Difficulty Paying for Meds: No Currently Unemployed: No Education: High School Diploma/GED Difficulty w/ Childcare or Family Care: No Living arrangements: with family Occupation/Education: occupation Additional occupation/education comments: Groomer/pet Gender identity (if verbalized by the patient): Female Spiritual care concerns: No Exam Narrative: GENERAL: Well appearing, well-nourished, non-toxic, in no acute distress. HEAD: Normocephalic, atraumatic. RESPIRATORY: Airway patent, respirations nonlabored. Clear to auscultation bilaterally, no rales, rhonchi, wheezing. CARDIOVASCULAR: Borderline tachycardic with regular rhythm without murmurs, rubs, or gallops. ABDOMINAL: Soft, tenderness to palpation throughout lower abdomen, worst in RLQ, nondistended. Normoactive BS. MUSCULOSKELETAL: Moves all extremities. No gross deformities. SKIN: Warm, dry, normal color. NEURO: A&O X3. Speech clear. Cranial nerves II-XII grossly intact. Steady gait. No ataxic movements. PSYCHIATRIC: Appropriate mood and affect. Normal interaction. Course Vital Signs Vital signs: Vital Signs Temperature 97.4 F L 01/
[2023-12-06 20:34] LABS: Alanine Aminotransferase 17 U/L (6-35); Albumin Level 4.2 g/dL (3.5-5.1); Alkaline Phosphatase 74 U/L (38-126); Anion Gap 4 mmol/L (8-16); Aspartate Amino Transferase 25 U/L (14-36); Bilirubin,Total 0.4 mg/dL (0.2-1.3); Blood Urea Nitrogen 12 mg/dL (7-17); Calcium 9.5 mg/dL (8.4-10.2); Carbon Dioxide 28 mmol/L (22-30); Chloride 104 mmol/L (98-107); Estimated CRCL calculation 85 ml/min; Estimated Glomerular Filt Rate > 60; Glucose 117 mg/dL (65-110); Lipase 39 U/L (23-300); Sodium 136 mmol/L (137-145)
[2023-12-06] MEDS: MORPHINE SULFATE (*CRX) 4 MG/ML INJ IV PUSH (21:00)
[2023-12-06] MEDS: ONDANSETRON INJ 4 MG/2 ML VIAL IV PUSH (21:00)
[2023-12-06] MEDS: SODIUM CHLORIDE 0.9% IV 1,000 ML 999 ML IV CONT (21:01)
[2023-12-06 21:14] LABS: SPREG INTERNAL CONTROL Positive; Serum Qual hCG Negative
[2023-12-06 22:35] LABS: Appearance Urine Clear (Clear); Bilirubin Urine Negative (Negative); Blood Urine Negative (Negative); Color Urine Yellow (Yellow); Glucose Urine UA Negative (Negative); Ketones Urine Negative (Negative); Leukocyte Esterase Ur Negative LEU/UL (Negative); Nitrate Urine Negative (Negative); Protein Urine Negative (Negative); Urobilinogen Urine 0.2 mg/dL (<2.0)
[2023-12-06 22:53] LABS: Add Urine Microscopic? NO; Specific Grav Ur 1.079 (1.001-1.035)
[2023-12-06 23:49] VITALS: BP 132/76; PULSE 82; RESP 16; O2SAT 98
== END 2023-12-06 23:50 | disposition home or self-care (01) ==
PROVIDERS: Emergency Provider Physician Assistant; PCP Family Medicine
DX: K59.00 Constipation, unspecified (principal); R10.32 Left lower quadrant pain; R10.31 Right lower quadrant pain; Z87.891 Personal history of nicotine dependence
CPT/HCPCS: 36415; 74177; 76856; 80053; 81003; 83690; 84703; 85025; 96361; 96374; 96375; 99284; J2270; J2405; J7030; Q9967

== ENCOUNTER 2024-07-03 10:39 | Outpatient (CLI) | payer OTHER, SELFPAY ==
--- NOTE | ~2024-07-03 | US_ITS ---
EXAMINATION: US pelvic complete DATE: 07/03/2024 11:11 INDICATION: Abnormal uterine bleeding. TECHNIQUE: Multiple transabdominal sonographic images of the pelvis were obtained. COMPARISON: Ultrasound 12/06/2023 FINDINGS: The uterus measures 9.7 x 4.3 x 5.6 cm. There is no free fluid in the pelvis. The endometrial complex measures 9 mm in thickness. The right ovary measures 4.7 x 2.1 x 2.2 cm. The left ovary measures 3.9 x 2.3 x 2.6 cm. There is normal vascular flow in the ovaries. IMPRESSION: 1. Normal pelvis. Reviewed, dictated and finalized at location A. IMPRESSION: 1. Normal pelvis.
== END 2024-07-03 10:40 ==
LOC: MICIMG 10:39
PROVIDERS: PCP Family Medicine; Visit Provider Nurse Practitioner
DX: N93.8 Other specified abnormal uterine and vaginal bleeding (principal)
CPT/HCPCS: 76856

== ENCOUNTER 2025-02-17 00:34 | Day surgery (SDC) | payer OTHER, SELFPAY ==
[2025-02-06 11:37] VITALS: BMI 22.8
--- OUTSIDE RECORDS SUMMARY | 2025-02-17 00:38 | XMS_ITS | Clinical Summary ---
Author Organization [facility] Address [address] [place] [address] Care Team Providers Care Electrocardiograph Repairer Name Role Phone Joao Grissom APRN, CNP Primary Care Provider Medications HYDROcodone-gareth taminophen ([place]) 10-325 MG TabletIndicatio ns:Enterocoliti s Take 0.5 Tablets by mouth every 6 hours as needed for Mild or more severe pain for up to 8 doses. 8 Tablet 02/01/2023 Active Social History Tobacco Use Types Packs/Day Years Used Date Smoking Tobacco: Never Assessed Comments No Sex and Gender Information Value Date Recorded Sex Assigned at Not on file Legal Sex Female 7:59 PM CDT Gender Identity Not on file Sexual Orientation Not on file Last Filed Vital Signs Vital Sign Reading Time Taken Comments Blood Pressure 119/83 02/01/2023 11:37 AM CDT Pulse 81 02/01/2023 11:37 AM CDT Temperature 36.7 C (98.1 F) 02/01/2023 11:37 AM CDT Respiratory Rate 18 02/01/2023 11:37 AM CDT Oxygen Saturation 100% 02/01/2023 11:37 AM CDT Inhaled Oxygen Concentration - - Weight 59 kg (130 lb) 02/01/2023 11:37 AM CDT Height 154.9 cm (5' 1 ) 02/01/2023 11:37 AM CDT Body Mass Index 24.56 02/01/2023 11:37 AM CDT Plan of Treatment Health Maintenance Due Date Last Done Comments Hepatitis C Virus (HCV) Screening 1989 TdaP Immunization 1989 Hepatitis B Immunization (1 of 3 - 19+ 3-dose series) 2008 Pap Smear 2010 Cervical Cancer Screening (CCS) 2019 HPV/Cotest 2019 Influenza Immunization (#1) 07/13/202408/12, 08/30/2018 SARS-COV-2 Immunization ( season) 2024 11/08/2021, 01/11/2021, 12/14/2020 Respiratory Syncytial Virus (RSV) Immunization (Adult) (1 - 1-dose 75+ series) 2064 Meningococcal Immunization (ACWY) Aged Out No longer eligible b ased on patient's age to complete this topic Pneumococcal Immunization Combined Aged Out No longer eligible b ased on patient's age to complete this topic Rotavirus Immunization Aged Out No lo nger eligible based on patient's age to complete this topic Insurance [id number] [place] [address] Care Teams Electrocardiograph Repairer Relationship Specialty Start Date End Date Joao Grissom APRN, TURBINE ATTENDANT [address] [place] [address] PCP - General Advanced Practice Nurse 02/01/23
--- OUTSIDE RECORDS SUMMARY | 2025-02-17 00:38 | XMS_ITS | Clinical Summary ---
Author Organization [facility] Address [address] [place] [id number] Phone Care Team Providers Care Clinical Training Specialist Name Role Phone Unavailable Primary Care Provider Unavailabl e Social History Tobacco Use Types Packs/Day Years Used Date Smoking Tobacco: Never Assessed Comments Unknown Sex and Gender Information Value Date Recorded Sex Assigned at Not on file Legal Sex Female 12:58 PM CDT Gender Identity Not on file Sexual Orientation Not on file Plan of Treatment Health Maintenance Due Date Last Done Comments DTAP/TDAP/TD VACCINES (1 - Tdap) 2008 HEPATITIS B VACCINES (1 of 3 - 19+ 3-dose series) 2008 HPV/Cotest (21-29) 2010 PAP SMEAR 2010 CERVICAL CANCER SCREENING 2019 HPV/Cotest (30-65) 2019 PAP SMEAR 2019 INFLUENZA VACCINE (#1) 2024 HPV VACCINES Aged Out No longer eligi ble based on patient's age to complete this topic PNEUMOCOCCAL VACCINE 0-49 YEARS Aged Out No longer eligible based on patient's age to complete this topic Insurance [facility] [id number]
[2025-02-17 09:31] VITALS: BP 114/75; PULSE 112; RESP 20; TEMP 36.4; O2SAT 100; BMI 22.6
[2025-02-17] MEDS: LACTATED RINGERS 1,000 ML 150 ML IV CONT (09:48)
--- NOTE | 2025-02-17 09:50 | SUR.PREOP ---
Pt unable to give sample for test. Dr. Weller ok canceling test.
--- NOTE | 2025-02-17 09:53 | P.PNAN_ITS ---
Anes - Initial Pre Proc Eval Procedure: Operation Date: 02/17/25 11:00 Proposed Procedures p Screening Colonoscopy - Jj Delgado MD Date/Time: 02/17/25 09:53 Surgeon: Jj Delgado MD Pre Op Diagnosis: family hx malignant neoplasm digestive organs Patient Data Age: 34 Gender: F Height: 1.55 m Weight: 54.3 kg Last Vital Signs Temp 36.4 C L 02/17/25 09:31 Pulse 112 H 02/17/25 09:31 Resp 20 02/17/25 09:31 BP 114/75 02/17/25 09:31 Pulse Ox 100 02/17/25 09:31 O2 Del Method Room Air 02/17/25 09:31 Allergies Allergy/AdvReac Type Severity Reaction Status Date / Time sulfamethoxazole Allergy Mild Hives Verified 02/17/25 09:29 clindamycin Allergy Unknown HIVES Verified 02/17/25 09:29 levofloxacin AdvReac Intermediate Swelling Verified 02/17/25 09:29 metronidazole AdvReac Intermediate Swelling Verified 02/17/25 09:29 Home Medications ?Medication ?Instructions ?Recorded ?Confirmed ?Type multivitamin 1 tablet PO DAILY 12/18/23 02/17/25 History psyllium husk 3.4 gram/5.4 gram 1 tbsp PO DAILY 12/18/23 02/17/25 History oral powder (Metamucil) dextroamphetamine-amphetamine ER 25 mg PO QAM #30 caps 02/11/25 02/17/25 Rx 25 mg 24hr capsule,extend release (Adderall XR) Patient hx anesthesia problems: none Family hx anesthesia problems: none Results Review: All pre-operative results and documents have been reviewed as part of the pre- operative evaluation. 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 Social History Social History Smoking packs per day: 1 Smoking cigarettes per day: 20.0 Years smoked: 10 Smoking pack-years: 10.00 Smoking status: Former smoker Tobacco type: cigarettes Second hand tobacco smoke exposure: No Alcohol intake: current Drinks per week: 2 Substance use: never Substance use type: does not use Do You Feel Safe in your Home?: Yes Lack of Transportation: No Lack of Food: Never True Current Housing: I Have Housing Concerned About Future Housing: No Difficulty Paying Gas/Electric Bills: No Difficulty Paying for Meds: No Currently Unemployed: No Education: High School Diploma/GED Difficulty w/ Childcare or Family Care: No Living arrangements: with family Occupation/Education: occupation Additional occupation/education comments: Groomer/pet/dog Gender identity (if verbalized by the patient): Female Spiritual care concerns: No Anes - Eval Final PreProcedure Day of Procedure 02/17/25 09:53 Patient weight: normal Heart: regular rate and rhythm Lungs: clear to auscultation Airway: Mallampati scale class II Neurological: alert and oriented Last oral intake: >/= 8 hours ASA classification: II Emergent: no Anesthetic plan: proceed Anesthesia type and monitoring: general GIVS and standard monitoring Results Review: All pre-operative results and documents have been reviewed as part of the pre- operative evaluation. Informed Consent: The patient's anesthetic plan and its attendant risks and benefits were discussed with the patient/family/POA. Questions were solicited and answers provided to the satisfaction of the patient/family/POA.
--- NOTE | 2025-02-17 10:06 | PM.HPGS ---
History of Present Illness History of Present Illness Consent: Risks, benefits, and alternatives have been discussed and questions answered. Patient agrees to proceed with procedure. 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 Social History Social History Smoking packs per day: 1 Smoking cigarettes per day: 20.0 Years smoked: 10 Smoking pack-years: 10.00 Smoking status: Former smoker Tobacco type: cigarettes Second hand tobacco smoke exposure: No Alcohol intake: current Drinks per week: 2 Substance use: never Substance use type: does not use Do You Feel Safe in your Home?: Yes Lack of Transportation: No Lack of Food: Never True Current Housing: I Have Housing Concerned About Future Housing: No Difficulty Paying Gas/Electric Bills: No Difficulty Paying for Meds: No Currently Unemployed: No Education: High School Diploma/GED Difficulty w/ Childcare or Family Care: No Living arrangements: with family Occupation/Education: occupation Additional occupation/education comments: Groomer/pet/dog Gender identity (if verbalized by the patient): Female Spiritual care concerns: No Meds Home Medications and Allergies Home Medications ?Medication ?Instructions ?Recorded ?Confirmed ?Type multivitamin 1 tablet PO DAILY 12/18/23 02/17/25 History psyllium husk 3.4 gram/5.4 gram 1 tbsp PO DAILY 12/18/23 02/17/25 History oral powder (Metamucil) dextroamphetamine-amphetamine ER 25 mg PO QAM #30 caps 02/11/25 02/17/25 Rx 25 mg 24hr capsule,extend release (Adderall XR) Allergies Allergy/AdvReac Type Severity Reaction Status Date / Time sulfamethoxazole Allergy Mild Hives Verified 02/17/25 09:29 clindamycin Allergy Unknown HIVES Verified 02/17/25 09:29 levofloxacin AdvReac Intermediate Swelling Verified 02/17/25 09:29 metronidazole AdvReac Intermediate Swelling Verified 02/17/25 09:29 Vital Signs Vital Signs - 24 hr 02/17/25 09:31 Temperature 97.5 F L Pulse Rate 112 H Respiratory Rate 20 Blood Pressure 114/75 Pulse Oximetry 100 Oxygen Delivery Room Air Exam Const: General: comfortable and no acute distress HENMT: Face/Nose/Sinus: Normal nares present Eyes: General: appearance normal, both eyes and all related structures Neck: Neck: no JVD Resp: Auscultation: clear to auscultation bilaterally Cardio: Rate: regular rate Rhythm: regular rhythm GI: Inspection: non-distended GI Palp: Yes Soft to palpation Skin: General skin exam: normal color Neuro: General: gait normal Speech: normal speech Extrem: General: normal to inspection Psych: Mental Status: mental status grossly normal Assessment and Plan Assessment and plan (1) Family history of colon cancer in father: Code(s): Z80.0 - Family history of malignant neoplasm of digestive organs Status: Acute Assessment and Plan: colonoscopy
[2025-02-17 10:26] VITALS: BP 113/71; PULSE 76; RESP 20; O2SAT 100
[2025-02-17 10:36] VITALS: BP 112/66; PULSE 71; RESP 18; O2SAT 100
[2025-02-17 10:46] VITALS: BP 110/70; PULSE 68; RESP 18; O2SAT 100
== END 2025-02-17 10:51 | disposition home or self-care (01) ==
PROVIDERS: PCP Family Medicine; Visit Provider Internal Medicine Gastroenterology
PROC: 0DJD8ZZ Inspection of Lower Intestinal Tract, Via Natural or Artificial Opening Endoscopic (ICD-10-PCS; CPT 45378; principal; 2025-02-17 11:00)
DX: Z12.11 Encounter for screening for malignant neoplasm of colon (principal); K64.8 Other hemorrhoids; Z98.890 Other specified postprocedural states; Z87.891 Personal history of nicotine dependence; Z80.0 Family history of malignant neoplasm of digestive organs
CPT/HCPCS: 45378; J2704; J7120